=== PATIENT | female | born 1960 | race Caucasian/White ===

== ENCOUNTER 2017-04-19 14:20 | Inpatient (IN) | payer OTHER ==
[~2017-04-19] VITALS: Ht 154.9 cm; Wt 62.6 kg
--- NOTE | 2017-04-19 14:40 | NUR ---
PT TO ED "SENT BY OUR FRIEND DR ELLIOTT FOR IV VALCYCLOVIR" PT APPEARS WITH DIFFUSE RASH ALL OVER FACE AND BODY, REPORTING SHE SAW HER MD AND WAS DX'ED WITH CHICKEN POX, STARTED ON PO VALCYCLOVIR WITH NO IMPROVEMENT. REPORTING INTERMITTENT VOMITING, POOR PO INTAKE AND FEVER.
--- NOTE | 2017-04-19 15:30 | NUR ---
ASSUMED CARE OF PT, PT WITH LEFT SIDE FACE SHINGLES THAT BEGAN A FEW DAYS AGO. PT IN NAD.
[2017-04-19] MEDS ORDERED: VALACYCLOVIR1000 MG PO (16:17)
[2017-04-19] MEDS ORDERED: LEVOTHYROXINE112 MCG PO (16:18)
[2017-04-19] MEDS ORDERED: ALEVE220 M1 PO (16:18)
--- NOTE | 2017-04-19 16:27 | ED SKIN/ALLERGY COMPLAINT ---
History of Present Illness General Chief Complaint: General Adult Stated Complaint: RENZO PINK FOR IV AND BLOODWORK Source: patient Exam Limitations: no limitations Vital Signs & Intake/Output Vital Signs & Intake/Output Vital Signs Date Time Temp Pulse Resp B/P B/P Pulse O2 O2 Flow FiO2 Mean Ox Delivery Rate 04/19 1439 98.2 65 18 108/71 99 Room Air Allergies Coded Allergies: No Known Allergies (04/19/17) Reconcile Medications Levothyroxine Sodium 112 MCG TABLET 1 TAB PO DAILY THYROID (Reported) Naproxen Sodium (Aleve) 220 MG CAPSULE 2 CAP PO PRN PAIN (Reported) Valacyclovir HCl (Valacyclovir) 1,000 MG TABLET 1 TAB PO TID SHINGLES ( Reported) Triage Note: PT TO ED "SENT BY OUR FRIEND DR ELLIOTT FOR IV VALCYCLOVIR" PT APPEARS WITH DIFFUSE RASH ALL OVER FACE AND BODY, REPORTING SHE SAW HER MD AND WAS DX'ED WITH CHICKEN POX, STARTED ON PO VALCYCLOVIR WITH NO IMPROVEMENT. REPORTING INTERMITTENT VOMITING, POOR PO INTAKE AND FEVER. Triage Nurses Notes Reviewed? yes Onset: Gradual Duration: getting worse Timing: remote history Severity: moderate Severity Numbers: 5 Possible Factors: no cause identified HPI: Patient is a 56-year-old female with past medical history of hypothyroidism who presents to emergency room with a gradual onset of a 9 day history of herpes zoster. Patient initially thought that she had bug bites to left forehead which has progressively worsened in terms of patient complaining of erythematous skin blistering rash that has spread down her for head around her eyes and face the left side of her upper extremity and lower extremity anterior and posterior torso region. Patient was evaluated in the past week by her primary care doctor and today patient was evaluated by windsurfing instructor Patient has been on a one-day history of VALCYCLOVIR antiviral medication Patient complains of mild 3 out of 10 burning pain and mild itching to the skin rash Denies any fever chills blurred vision pain neck stiffness shortness of breath cough Patient denies any vaginal skin outbreak (JOSE ANGEL ANTHONY) Past History Travel History Traveled to [place] past 21 day No Medical History Any Pertinent Medical History? see below for history Neurological: NONE EENT: NONE Cardiovascular: NONE Respiratory: NONE Gastrointestinal: NONE Hepatic: NONE Renal: NONE Musculoskeletal: NONE Psychiatric: NONE Endocrine: HYPOTHYROID Blood Disorders: NONE Cancer(s): NONE Surgical History Surgical History: non-contributory Psychosocial History What is your primary language Slovenian Tobacco Use: Never used ETOH Use: denies use Illicit Drug Use: denies illicit drug use Family History Hx Contributory? No (JOSE ANGEL ANTHONY) Review of Systems Review of Systems Constitutional: Reports: no symptoms. EENTM: Denies: eye pain, eye drainage, eye tearing. Respiratory: Reports: no symptoms. Cardiovascular: Reports: no symptoms. GI: Reports: no symptoms. Genitourinary: Reports: no symptoms. Musculoskeletal: Reports: no symptoms. Skin: Reports: see HPI, rash. Neurological/Psychological: Reports: no symptoms. Hematologic/Endocrine: Reports: no symptoms. Immunologic/Allergic: Reports: no symptoms. All Other Systems: Reviewed and Negative (JOSE ANGEL ANTHONY) Physical Exam Physical Exam General Appearance: no apparent distress, alert, comfortable Eyes: Bilateral: normal appearance, PERRL, EOMI. Ears, Nose, Throat: hearing grossly normal Neck: normal inspection, supple Respiratory: normal breath sounds, chest non-tender Cardiovascular: regular rate/rhythm Gastrointestinal: soft, non-tender Extremities: no edema Neurologic/Psych: no motor/sensory deficits, awake, alert, oriented x 3, normal gait Diagram Body: 1) Noted unilateral left-sided erythematous scattered vesicular rash noted (JOSE ANGEL ANTHONY) Progress Differential Diagnosis: abscess/cellulitis, contact dermatitis, erythema multiforme, lyme disease, meningitis/sepsis, shingles, HERPES ZOSTER, CELLULITIS , MAXIMINO-ALBERT, IRITIS, KERATITIS HERPES OPTHALMICUS Plan of Care: Orders Procedure Date/time Status Regular Diet 04/20 B Active CBC WITHOUT DIFFERENTIAL 04/20 0600 Active BASIC ELECTROLYTES PLUS BUN&CR 04/20 0600 Active ED Holding Orders 04/19 B Active Pathway - chart 04/19 182 Active Pathway - chart 04/19 182 Active House Staff 04/19 182 Active Patient Data 04/19 1822 Active Intake & Output 04/19 1822 Active Code Status 04/19 1822 Active Patient Data 04/19 1800 Active Admit to inpatient 04/19 1750 Active Code Status 04/19 1750 Complete Add-on Test (ER Only) 04/19 1705 Active THYROID STIMULATING HORMONE 04/19 1700 Complete THYROXINE 04/19 1700 Complete FREE T4 04/19 1700 Complete COMPREHENSIVE METABOLIC PANEL 04/19 1642 Complete CBC WITHOUT DIFFERENTIAL 04/19 1642 Complete Lab Add-on Test 04/19 UNK Active VTE Mechanical Prophylaxis 04/19 UNK Active Current Medications Sig/Bienvenido Start time Last Medication Dose Stop Time Status Admin Levothyroxine Sodium 0.1 MG DAILY AC 04/20 0700 AC (Synthroid) Pregabalin 50 MG TID 04/19 2200 AC (Lyrica) Acyclovir 600 MG Q8H 04/19 214 UNVr (Zovirax) Dextrose/Water 100 ML (D5W) Ketorolac 30 MG Q8P PRN 04/19 214 UNVr Tromethamine (Toradol) Morphine Sulfate 1 MG Q4P PRN 04/19 2030 AC (Morphine) Sodium Chloride 1,000 ML Q13H 04/19 2030 r (Normal Saline 0.9%) 04/20 0929 Acetaminophen 650 MG Q6P PRN 04/19 1830 AC (Tylenol) Enoxaparin Sodium 40 MG DAILY 04/19 1821 AC (Lovenox) Acyclovir 315 MG ONCE ONE 04/19 1715 CAN (Zovirax) 04/19 1716 Acyclovir 315 MG ONCE 04/19 0000 NR (Zovirax) 04/20 2358 Sodium Chloride 250 ML (Normal Saline 0.9%) Laboratory Tests 04/19/17 1700: Anion Gap 15, Estimated GFR > 60, BUN/Creatinine Ratio 26.7 H, Glucose 107 H, Calcium 9.9, Total Bilirubin 0.8, AST 25, ALT 42, Alkaline Phosphatase 86, Total Protein 7.7, Albumin 4.7, Globulin 3.0, Albumin/Globulin Ratio 1.6, TSH 0.016 L , Free T4 1.66, Thyroxine (T4) 13.2 H, CBC w Diff NO MAN DIFF REQ, RBC 4.85, MCV 87.8, MCH 29.2, RDW 13.4, MPV 7.6, Gran % 63.5, Lymphocytes % 17.8 L, Monocytes % 18.4 H, Eosinophils % 0.2, Basophils % 0.1, Absolute Granulocytes 5.0, Absolute Lymphocytes 1.4, Absolute Monocytes 1.5 H, Absolute Eosinophils 0 , Absolute Basophils 0, PUBS MCHC 33.3 Patient on initial examination declines pain medications when offered however states she is nauseous I discussed patient with windsurfing instructor Dr. GEE in which he evaluated patient today and he states that there is no concerns of this time of dendritic lesions or keratitis however patient was prescribed ZIRGAN eyedrops Patient denies any history of immunocompromise state however on exam findings patient has significant mucocutaneous herpes simplex virus infection Patient will be admitted for IV antiviral medications in which patient will require infectious disease consultation and further evaluation of patient's significant herpes zoster infection. Discussed disposition plan with patient who agrees Patient's who also go to the pharmacy to brass pickler the prescription of the eyedrops in which [facility] does not have ZIRGAN NOR trifluridine which was strongly advised by the windsurfing instructor to begin this medication concomitantly with antiviral medication Patient will be administered this eyedrop medication when is picked up by the (JOSE ANGEL ANTHONY) Departure Departure Disposition: STILL A PATIENT Condition: Stable Clinical Impression Primary Impression: Herpes zoster dermatitis Secondary Impressions: Herpes zoster ophthalmicus of left eye Referrals: FRANCESCO GRAFF,RADHA Knox (PCP/Family) Departure Forms: Customer Survey General Discharge Information Admission Note Spoke With: ERROL GRAFF,ROSA Documentation of Exam: Documentation of any treatments & extenuating circumstances including Concerns Regarding Discharge (functional status, medication knowledge or non-compliance, living conditions, etc.) that warrant an admission rather than observation: [ Discussed patient with Dr. Cota who agrees with general medicine admission for concerns of herpes zoster and herpes ophthalmicus. Patient requires infectious disease consultation, ophthalmology consultation, IV antiviral medications and further evaluation of patient's significant concerning viral infection.] (JOSE ANGEL ANTHONY) PA/TRADE ANALYST Co-Sign Statement Statement: ED Attending supervision documentation- [X] I saw and evaluated the patient. I have also reviewed all the pertinent lab results and diagnostic results. I agree with the findings and the plan of care as documented in the PA's/TRADE ANALYST's documentation. [X] I have reviewed the ED Record and agree with the PA's/TRADE ANALYST's documentation. [] Additions or exceptions (if any) to the PAs/TRADE ANALYST's note and plan are summarized below: [] (LEON GRAFF,TODD Ann)
[2017-04-19 17:07] LABS: ABSOLUTE BASOPHIL COUNT 0 /CUMM (0.0-0.2); ABSOLUTE EOSINOPHIL COUNT 0 /CUMM (0.0-0.7); ABSOLUTE LYMPH COUNT 1.4 /CUMM (1.2-3.4); ABSOLUTE MONOCYTE COUNT 1.5 /CUMM (0.10-0.60); BASOPHIL % 0.1 % (0.0-2.0); EOSINOPHIL % 0.2 % (0-5); GRANULOCYTE % 63.5 % (42.2-75.2); HEMATOCRIT 42.6 % (37-47); MEAN CORPUSCULAR HGB 29.2 PG (27.0-31.0); MEAN CORPUSCULAR HGB CONC 33.3 G/DL (33.0-37.0); MEAN CORPUSCULAR VOLUME 87.8 FL (81.0-99.0); MEAN PLATELET VOLUME 7.6 FL (7.4-10.4); PLATELET COUNT 225 /CUMM (130-400); RBC DISTRIBUTION WIDTH 13.4 % (11.5-14.5); RED BLOOD CELL CT 4.85 /CUMM (4.20-5.40); WHITE BLOOD CELL COUNT 7.9 /CUMM (4.8-10.8)
--- NOTE | 2017-04-19 17:13 | NUR ---
PT EVALUATED BY [facility] M NUNEZ. IV #20G INSERTED ON LAC. LABS DRAWN AND SENT. MEDICATED WITH ZOFRAN IVP FOR NAUSEA. SENT PT'S FAMILY TO GET ZOVIRAX IV FROM OUTSIDE PHARMACY BY [facility] HERE DON'T HAVE IT.
--- NOTE | 2017-04-19 18:02 | History & Physical ---
CRISTY DUNLAP MD 04/19/17 1802: General Information and HPI History of Present Illness: Ms. Arizmendi is a 56-year-old female with past medical history of hypothyroidism who presents with history of left facial rash that is painful and has progressed over the course of 9 days. She was in [place] when she started developing these "bug bites" on her left forehead. She thought they were bug bites because there was a swarm of flies had been near her earlier that day. Over the course of 5 days, this slowly progressed. She went to see her PCP, who also thought it was bug bites. However she started feeling this electric type pain and the rash continued to progress. She also experienced significant vomiting without blood. 2 days later, a family friend, Dr. Santos, happened to be visiting and noticed that the rash resembled herpes zoster. He referred them to Dr. mejias, the remanufacturing technician. On her exam, she saw no concerns for dendritic lesions or keratitis however the patient was prescribed Zirgan eyedrops. She then was referred to the emergency department here at [facility]. Talking to her now, she does not complain of much pain. She is endorsing slightly blurry vision despite normal vision on Dr. mejias's exam. She does have headache, nausea, poor by mouth intake, eye pain with movement. She is also anxious about her condition. She denies chest pain, shortness of breath, diarrhea, constipation. Of note, she does not know if she ever had chickenpox. She did not have the shingles vaccine. Allergies/Medications Allergies: Coded Allergies: tramadol (Mild, NAUSEA/VOMITING 04/23/17) Home Med list Levothyroxine Sodium 112 MCG TABLET 1 TAB PO DAILY THYROID (Reported) Levothyroxine Sodium (Synthroid) 100 MCG TABLET 1 TAB PO DAILY AC Hypothyroid Naproxen Sodium (Aleve) 220 MG CAPSULE 2 CAP PO PRN PAIN (Reported) Valacyclovir HCl (Valacyclovir) 1,000 MG TABLET 1 TAB PO TID SHINGLES Past History Travel History Traveled to [place] past 21 day No Medical History Neurological: NONE EENT: NONE Cardiovascular: NONE Respiratory: NONE Gastrointestinal: NONE Hepatic: NONE Renal: NONE Musculoskeletal: NONE Psychiatric: NONE Endocrine: HYPOTHYROID Blood Disorders: NONE Cancer(s): NONE Surgical History Surgical History: non-contributory Past Family/Social History Psychosocial History ETOH Use: denies use Illicit Drug Use: denies illicit drug use Review of Systems Review of Systems Constitutional: Reports: see HPI. EENTM: Reports: see HPI. Cardiovascular: Reports: no symptoms. Respiratory: Reports: no symptoms. GI: Reports: see HPI. Genitourinary: Reports: no symptoms. Musculoskeletal: Reports: no symptoms. Skin: Reports: see HPI. Neurological/Psychological: Reports: no symptoms. Hematologic/Endocrine: Reports: no symptoms. Immunologic/Allergic: Reports: no symptoms. All Other Systems: Reviewed and Negative Exam & Diagnostic Data Last 24 Hrs of Vital Signs/I&O Vital Signs Date Time Temp Pulse Resp B/P B/P Pulse O2 O2 Flow FiO2 Mean Ox Delivery Rate 04/19 1439 98.2 65 18 108/71 99 Room Air Intake & Output 04/19 1600 04/19 0800 04/19 0000 Intake Total Output Total Balance Patient 139 lb Weight Weight Reported by Patient Measurement Method Physical Exam General Appearance Alert, Oriented X3, Cooperative, No Acute Distress Skin dermatomal and vesicular rash mostly in left V1 erythematous papules and some crusting. This includes the left eye, front third of the top of the head. .there are also some papules diffusely spread along her head and neck and abdomen. Cardiovascular Regular Rate, Normal S1, Normal S2 Lungs Clear to Auscultation Abdomen Normal Bowel Sounds, Soft, No Tenderness, No Masses Extremities No Edema Last 24 Hrs of Labs/Jarrett: Laboratory Tests 04/19/17 1700: Anion Gap 15, Estimated GFR > 60, BUN/Creatinine Ratio 26.7 H, Glucose 107 H, Calcium 9.9, Total Bilirubin 0.8, AST 25, ALT 42, Alkaline Phosphatase 86, Total Protein 7.7, Albumin 4.7, Globulin 3.0, Albumin/Globulin Ratio 1.6, TSH 0.016 L , Thyroxine (T4) 13.2 H, CBC w Diff NO MAN DIFF REQ, RBC 4.85, MCV 87.8, MCH 29.2, RDW 13.4, MPV 7.6, Gran % 63.5, Lymphocytes % 17.8 L, Monocytes % 18.4 H , Eosinophils % 0.2, Basophils % 0.1, Absolute Granulocytes 5.0, Absolute Lymphocytes 1.4, Absolute Monocytes 1.5 H, Absolute Eosinophils 0, Absolute Basophils 0, PUBS MCHC 33.3 Assessment/Plan Assessment: Ms. Arizmendi is a 56-year-old female with past medical history of hypothyroidism who presents with history of left facial rash that is painful and has progressed over the course of 9 days. On admission, her vital signs were temperature 98.2, heart rate 65, RR 18, BP 108/71, satting 99% on room air. Labs were notable for a BUN of 24, glucose 107 , creatinine 0.9, TSH 6.016, thyroxine T4 13.2. There is no leukocytosis. She will be admitted to general medicine and treated for the following problems: 1. Dermatomal rash, likely herpes zoster 2. Diffuse rash 3. Hypothyroidism # Dermatomal rash, herpes zoster: Exam greatly supports herpes zoster rash as is it is dermatomal and vesicular. History of electric type pain also supports nerve type pain seen in herpes zoster. She is immunocompetent host. There is concern for ophthalmic involvement. She was evaluated by an remanufacturing technician and there is no concern at this time for inflammation in the eye. We will follow this closely. -PO valacyclovir -IV hydration -Zirgan eyedrops - confirm that these are the correct drops as usually valacyclovir or acyclovir as used for herpes zoster. -Consult ophthalmology -Anti-emetics as tolerated -Pain control as tolerated. consider gabapentin for neuropathic pain #Diffuse rash: Though uncommon, there is potential for her to have both herpes zoster and chickenpox. Because some of this rash is not in the dermatomal region as expected this is on the differential. -Continue to monitor #Hypothyroidism: She is actually hyperthyroid right now with thyroxine elevated. His is in context of her being sick. -Add T3 -Consider consulting endocrinology in the morning DVT prophylaxis with Lovenox Full code As Ranked By This Provider Problem List: 1. Herpes zoster dermatitis 2. Hypothyroid Core Measures/Miscellaneous Acute Coronary Syndrome ACS Diagnosis: No Cerebrovascular Accident CVA/TIA Diagnosis: No Congestive Heart Failure CHF Diagnosis: No VTE (View Protocol) VTE Risk Factors: Age > 40 [facility] d/t: No contraindications No VTE Pharm Prophylaxis d/t: No contraindications VTE Diagnosis: No VTE Type: NONE VTE Confirmed by (Test): NONE Sepsis (View Protocol) Severe Sepsis Present: No Septic Shock Septic Shock Present: No Miscellaneous Documentation Attending Case Discussed With: ERROL GRAFF,RSOA Primary Care Physician: RADHA GAMEZ MD Patient sees these Specialists None Level of Patient Care: General Medicine EVER GIBSON 04/19/171922: Resident Review Statement Resident Statement: examined this patient, discussed with logistics intern, agreed with logistics intern, discussed with family, reviewed EMR data (avail), discussed with nursing , reviewed images Other Findings: Mrs Arizmendi is a 56-year-old lady with a PMH of hypothyroidism who presents with complaints of a rash that started a few days ago. She and her report traveling to [place] during which she thought some bugs may have come in contact with her face. Over the past 5 days she noted what she describes as bumps on her left forehead and subsequent swelling of the gland around her left ear. Simultaneously she endorses pain around the left face she describes as electric shocks subsided the past 2 days. The rash appears to spread around her left eye, upper face and scattered spots on her abdomen, back and legs. She followed up with her PCP who referred her to see an remanufacturing technician Dr. Mejias earlier today. Slit lamp was performed which did show evidence of dendrites, she was started on oral valacyclovir and referred to the emergency room. ROS: Patient endorses intermittent episodes of chills, night sweats, slight blurred vision out of her left eye, aching sensation behind both eyes with movement, a few episodes of nonbloody vomiting. She denies any dizziness, confusion, difficulty swallowing, chest pain, palpitations, shortness of breath abdominal pain, changes in urinary/bladder habit. VS on admission: BP 108/71, HR 65, RR 18, SPO2 99% on RA, T 98.2 Physical exam findings: Patient has a vesicular rash that is localized around the V1 and partially around the V2 region of the left face tracking over the temporal region. Injected sclera present bilaterally. Scattered vesicular lesions on her abdomen and back. RRR, normal S1/S2. Lungs CTA BL. Normal bowel sounds. Pertinent labs on admission: WBC 7.9, H&H 14.2/42.6, platelet's 225K, sodium 141 , potassium 4.5, chloride 100, bicarbonate 27, BUN/CR 24/0.9, glucose 107 TSH 0.016L, T4 13.2 Problem list: 1. Primary infection (Varicella /chicken pox) vs reactivation (herpes zoster, shingles) 2. Trigeminal herpes zoster 3. Herpes ophthalmicus 4. Hypothyroidism with abnormal TFTs Plan: * Admit to general medicine for management of what appears to be a primary infection (varicella, chicken pox) the V1 and V2 region * Acyclovir dosage guidelines recommend 800 mg PO 5 times a day for 7-10 days in immunocompetent patients for both shigles and herpes opthalmicus. Alternatively 10mg/kg Q8 for 7 days * Will start her on 600mg Q8 along with gentle hydration with NS @ 75cc/hr as this medication can be associated with crystaline nephropathy * Role of corticosteroids is controversial but will discuss with both ID and opthalmology in the AM * Patient was seen by Dr. 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 His recommendation were to initiate Zirgan (opthalmic ganciclovir) . Will confirm with Dr Mejias if there was evidence of corneal ulceration during slight lamp exam. Patients will bring the medication from their pharmacy in the AM * Will monitor closely for evidence of complications associated with this: encephalitis that woould warrant CT/MRI brain and continued IV acyclovir * Monitor for Chente Karimi syndrome - pain, vesicles in ear canal + facial palsy + altered taste * Will discuss with ID on role of vaccination of / close contacts within the 3-5 day period * Pain management with NSAIDs, lyrica for neuropathy * Low TSH, high T4. T3 pending. Possibility of iatrogenic-induced hypothyroidism. Will obtain endocrinology consult in the a.m. * Regular diet * DVT prophylaxis: Lovenox 40 mg subcutaneous daily * Full code CODY GRAFF, [facility] 04/19/172033: Attending MD Review Statement Attending Statement Attending MD Statement: examined this patient, discuss w/resident/PA/AIRLINE RADIO OPERATOR, agreed w/resident/PA/AIRLINE RADIO OPERATOR, discussed with family Attending Assessment/Plan: 56 yo F with h/o hypothyroidism, is here for management of disseminated cutaneous zoster with concerns of eye involvement. Patient first noticed headache, 'electric shock like' sensation to her face and head about 8-9 days ago. She saw her PCP (Dr. Gamez) last week, was noted to have left cervical lymphadenopathy and thought she might have been bitten by a bug. Over the past 24-48 hours, she noticed red papules that evolved into vesicular lesions on the left half of the face involving the left eyelid, subsequently now noted to have erythematous papules on the chest, abdomen, bilateral thigh and lower back. These lesions do cross the midline. She was seen by Dr. Santos (family friend) who asked her to start taking Valcyclovir. Today she was seen by Dr. Mejias (Refrigeration Operator) who did a slip lamp exam with no evidence of dendritic lesions or keratitis. But she is at risk of developing zoster ophthalmicus. No history s/o immunocompromised state. She does not recollect having chicken pox and has not received the zoster vaccine. Patient reports fever of 101, chills, associated with nausea, vomiting and poor appetite for the past 2 days. C/o blurred vision in the left eye, though reports that her visual acuity was perfect at the doctor's office. VSS. Exam: extensive grouped vesicular lesions to the left half of face mostly V1 and V2 distribution involving left eyelid, a few extending into the right lower half, erythematous papules noted to the scalp, lower chest/ abdomen, bilateral thigh and lower back. These cross the midline. Sensation intact. EOMI, no pain with ROM. Labs: no leukocytosis, BUN 24, TSH 0.016 (low), Total T4 13.2 (high), Free T4 normal. 1. Disseminated cutaneous herpes zoster with concerns for zoster ophthalmicus. GM admit, contact and droplet precautions, IV acyclovir 10 mg/kgTID, gentle hydration, anti-emetics, topical ophthalmic Zirgan (Ganciclovir) or Trifluridine as per Dr. Mejias's recommendations. Unfortunately our pharmacy does not carry either of these medications, hence patient's will bring in the medication from outpatient pharmacy. ID consult in AM. Consider checking HIV to assess immunocompromised state. 2. Treat acute neuritis with NSAIDs, Tramadol and morphine for severe pain. Initiate pregabalin 50 TID. 3. Hypothyroidism on synthroid (112 mcg), now with low TSH. I have reduced her synthroid dose to 100 mcg, she will need repeat TFTs in 4-6 weeks as an outpatient and follow up with PCP. DVT ppx Lovenox. Full code.
--- NOTE | 2017-04-19 18:21 | NUR ---
ZOFRAN EFFECTIVE, PT REPORTS FEELING BETTER WITH NAUSEA.
--- NOTE | 2017-04-19 18:23 | NUR ---
HOUSE STAFF IN ROOM EVALUATING THE PT.
--- NOTE | 2017-04-19 18:42 | NUR ---
MORPHINE IVP ADMINISTERED ORDERED FOR PAIN 5/10.
--- NOTE | 2017-04-19 19:00 | NUR ---
ASSUMED CARE OF PT. PT HERE WITH C/O LEFT SIDED FACE SHINGLES. PT IN NAD, WILL CONTINUE TO MONITOR.
--- NOTE | 2017-04-19 20:00 | NUR ---
PT EVAL BY DR ROSS, PER DR ROSS PT TO BE ON CONTACT AND DROPLET/AIRBORN PRECAUTIONS. PT UPDATED ON PLAN OF CARE.
--- NOTE | 2017-04-19 20:29 | Admission Certification ---
Admission Certification Certification Statement - As attending physician, I certify that at the time of - admission, based on clinical presentation, severity of - symptoms, need for further diagnostic testing and - therapeutic interventions, and risk of adverse outcomes - without in-hospital treatment, in my clinical assessment, - this patient requires an acute hospital stay for a minimum - of two nights or longer. I have also considered psychsocial - factors such as support system, advanced age, financial - issues, cognitive issues, and failed out-patient treatments, - past re-admission history, safety of patient, and lack of - compliance as applicable. Specific rationale supporting this admission is: Disseminated cutaneous herpes zoster with concern for zoster ophthalmicus.
--- NOTE | 2017-04-20 00:01 | NUR ---
RESTING COMF IN [facility] BED, WILL DISCUSS WITH PHARMACY ZOVIRAX IV.
--- NOTE | 2017-04-20 04:40 | NUR ---
MOVED TO RM 10 PLACED ON HOSPITAL BED, SLIPPER SOCKS PLACED ON PT DENIES ANY PAIN
--- NOTE | 2017-04-20 07:32 | NUR ---
LABS DRAWN, SENT TO LAB.
--- NOTE | 2017-04-20 07:40 | NUR ---
MEDICATED WITH SYNTHROID (SEE MAR)
[2017-04-20 08:00] LABS: ABSOLUTE BASOPHIL COUNT 0 /CUMM (0.0-0.2); ABSOLUTE EOSINOPHIL COUNT 0 /CUMM (0.0-0.7); ABSOLUTE GRANULOCYTE CT 3.6 /CUMM (1.4-6.5); ABSOLUTE LYMPH COUNT 2.1 /CUMM (1.2-3.4); ABSOLUTE MONOCYTE COUNT 1.3 /CUMM (0.10-0.60); BASOPHIL % 0.4 % (0.0-2.0); EOSINOPHIL % 0.3 % (0-5); GRANULOCYTE % 50.8 % (42.2-75.2); HEMATOCRIT 39.7 % (37-47); MEAN CORPUSCULAR HGB 29.2 PG (27.0-31.0); MEAN CORPUSCULAR HGB CONC 33.1 G/DL (33.0-37.0); MEAN CORPUSCULAR VOLUME 88.1 FL (81.0-99.0); MEAN PLATELET VOLUME 7.9 FL (7.4-10.4); PLATELET COUNT 193 /CUMM (130-400); RBC DISTRIBUTION WIDTH 13.5 % (11.5-14.5); WHITE BLOOD CELL COUNT 7.1 /CUMM (4.8-10.8)
--- NOTE | 2017-04-20 08:45 | PN- Housestaff ---
See Addendum Subjective Follow-up For: Herpes zoster dermatitis Subjective: She presented last night. This morning, she is feeling a little better. She is still anxious being in the hsopital but she thinks her appetite has somewhat improved. No issues overnight. Her eye pain is 5/10, which is well controlled for her. No chest pain or SOB. Review of Systems Constitutional: Reports: no symptoms. EENTM: Reports: see HPI. Cardiovascular: Reports: no symptoms. Respiratory: Reports: no symptoms. Gastrointestinal: Reports: see HPI. Genitourinary: Reports: no symptoms. Musculoskeletal: Reports: no symptoms. Skin: Reports: no symptoms. Neurological/Psychological: Reports: no symptoms. Hematologic/Endocrine: Reports: no symptoms. Immunologic/Allergic: Reports: no symptoms. Objective Last 24 Hrs of Vital Signs/I&O Vital Signs Date Time Temp Pulse Resp B/P B/P Pulse O2 O2 Flow FiO2 Mean Ox Delivery Rate 04/20 0813 98.6 71 18 109/58 95 Room Air 04/19 2259 18 118/66 99 Room Air 04/19 2100 70 20 124/74 100 Room Air 04/19 1800 71 20 116/72 100 Room Air 04/19 1645 98.0 66 20 112/68 99 Room Air 04/19 1439 98.2 65 18 108/71 99 Room Air Intake & Output 04/20 1600 04/20 0800 04/20 0000 Intake Total 5 Output Total Balance 5 Intake, IV 5 Physical Exam General Appearance: Alert, Oriented X3, Cooperative, No Acute Distress HEENT: Rash has improved from yesterday. Less red, less swelling. Still in V1 distribution, vesicular. Diffuse rash on trunk is also improving. Cardiovascular: Regular Rate, Normal S1, Normal S2 Lungs: Clear to Auscultation Abdomen: Normal Bowel Sounds, Soft, No Tenderness, No Hepatospenomegaly, No Masses Neurological: Normal Speech, Strength at 5/5 X4 Ext Extremities: No Edema Current Medications: Current Medications Sig/Bienvenido Start time Last Medication Dose Route Stop Time Status Admin Acetaminophen 650 MG Q6P PRN 04/19 1830 AC PO Acyclovir 600 MG Q8H 04/19 2145 AC 04/20 Dextrose/Water 100 ML IV 0538 Acyclovir 315 MG ONCE ONE 04/19 1715 CAN IV 04/19 1716 Acyclovir 315 MG ONCE 04/19 0000 DC Sodium Chloride 250 ML IV 04/20 2358 Enoxaparin Sodium 40 MG DAILY 04/19 182 AC SC Gabapentin 100 MG Q8 PRN 04/19 2015 DC PO Ketorolac 30 MG Q8P PRN 04/19 2145 DC Tromethamine IV Levothyroxine Sodium 0.112 MG DAILY AC 04/20 0700 DC PO Levothyroxine Sodium 0.1 MG DAILY AC 04/20 0700 AC 04/20 PO 0740 Morphine Sulfate 1 MG Q4P PRN 04/19 2030 AC IV Morphine Sulfate 0 .STK-MED ONE 04/19 1844 DC .ROUTE Morphine Sulfate 2 MG Q4P PRN 04/19 1830 DC 04/19 IV 1843 Ondansetron HCl 0 .STK-MED ONE 04/19 170 DC .ROUTE Ondansetron HCl 4 MG ONCE ONE 04/19 1700 DC 04/19 IV 04/19 1701 1708 Oxycodone/ 1 TAB Q6P PRN 04/19 1830 DC Acetaminophen PO Pregabalin 50 MG TID 04/19 2200 AC 04/19 PO 2240 Sodium Chloride 1,000 ML Q13H 04/19 2030 AC 04/19 IV 04/20 0929 2240 Tramadol HCl 50 MG Q6P PRN 04/19 2315 AC PO Last 24 Hrs of Lab/Jarrett Results Last 24 Hrs of Labs/Mics: Laboratory Tests 04/20/17 0730: Anion Gap 10, Estimated GFR > 60, BUN/Creatinine Ratio 25.0, Total Bilirubin 0.7 , Direct Bilirubin 0.3, AST 43 H, ALT 42, Alkaline Phosphatase 78, Total Protein 6.5, Albumin 3.8, CBC w Diff NO MAN DIFF REQ, RBC 4.50, MCV 88.1, MCH 29.2, RDW 13.5, MPV 7.9, Gran % 50.8, Lymphocytes % 29.7, Monocytes % 18.8 H, Eosinophils % 0.3, Basophils % 0.4, Absolute Granulocytes 3.6, Absolute Lymphocytes 2.1, Absolute Monocytes 1.3 H, Absolute Eosinophils 0, Absolute Basophils 0, PUBS MCHC 33.1 04/19/17 1700: Anion Gap 15, Estimated GFR > 60, BUN/Creatinine Ratio 26.7 H, Glucose 107 H, Calcium 9.9, Total Bilirubin 0.8, AST 25, ALT 42, Alkaline Phosphatase 86, Total Protein 7.7, Albumin 4.7, Globulin 3.0, Albumin/Globulin Ratio 1.6, TSH 0.016 L , Free T4 1.66, Thyroxine (T4) 13.2 H, Total T3 0.72 L, CBC w Diff NO MAN DIFF REQ, RBC 4.85, MCV 87.8, MCH 29.2, RDW 13.4, MPV 7.6, Gran % 63.5, Lymphocytes % 17.8 L, Monocytes % 18.4 H, Eosinophils % 0.2, Basophils % 0.1, Absolute Granulocytes 5.0, Absolute Lymphocytes 1.4, Absolute Monocytes 1.5 H, Absolute Eosinophils 0, Absolute Basophils 0, PUBS MCHC 33.3 Assessment/Plan Assessment: Ms. Arizmendi is a 56-year-old female with past medical history of hypothyroidism who presents with history of left facial rash that is painful and has progressed over the course of 9 days. # Dermatomal rash, likely herpes zoster: Exam greatly supports herpes zoster rash as is it is dermatomal and vesicular. History of electric type pain also supports nerve type pain seen in herpes zoster. She is immunocompetent host. She will likely need follow-up with the radiation control health physicist after discharge, which can potentially be today. -PO acyclovir -IV hydration -Zirgan eyedrops - confirm that these are the correct drops as usually valacyclovir or acyclovir as used for herpes zoster. -Consult ophthalmology we will talk to Dr. Rausch today -Pregabalin -Lyrica -Acetaminophen -Morphine when necessary pain #Diffuse rash: Though uncommon, there is potential for her to have both herpes zoster and chickenpox. Because some of this rash is not in the dermatomal region as expected this is on the differential. -Continue to monitor #Hypothyroidism: TSH 0.016, T4 13.2, free T4 1.66, total T3 0.72. -Consider consulting endocrinology. May need adjustment of her levothyroxine -Continue levothyroxine DVT prophylaxis with Lovenox Full code Problem List: 1. Herpes zoster dermatitis 2. Hypothyroid Pain Ratin Pain Location: eye Pain Goal: Remain pain free Pain Plan: see a/p Tomorrow's Labs & Rationales: none
--- NOTE | 2017-04-20 10:00 | NUR ---
MEDICATED ORDERED (SEE MAR)
--- NOTE | 2017-04-20 10:52 | Discharge Summary ---
Visit Information Visit Dates Admission Date: 04/19/17 Discharge Date: 04/24/17 Hospital Course Course Attending Physician: ROSA NORTON MD Primary Care Physician: RADHA MAYA MD Hospital Course: Ms. Arizmendi is a 56-year-old female with past medical history of hypothyroidism who presented with history of left facial rash that is painful and had progressed over the course of 9 days. On admission, her vital signs were temperature 98.2, heart rate 65, RR 18, BP 108/71, satting 99% on room air. Labs were notable for a BUN of 24, glucose 107 , creatinine 0.9, TSH 6.016, thyroxine T4 13.2. There was no leukocytosis. She will be admitted to general medicine and treated for the following problems: 1. Disseminated herpes zoster 2. Hypothyroidism #herpes zoster dermatitis with secondary dissemination: Her history and exam on presentation greatly supported herpes zoster rash as it was dermatomal and vesicular. Infectious disease was consulted. She was treated with intravenous acyclovir and her pain was treated appropriately. She did not develop significant blurry vision, pain with combination, increasing pain in the eye. Her rash is now improving and she is ready for discharge. She should follow-up with ophthalmology on Monday and her PCP this week. She should continue the valacyclovir as directed. #Hypothyroidism: TSH 0.016, T4 13.2, free T4 1.66, total T3 0.72 at presentation. We adjusted her levothyroxine dose and she should continue this going forward. She should also follow up with her PCP for further care. #Transaminitis: She presented with increases in her AST and ALT. This was likely a side effect of the acyclovir as it improved spontaneously. She requires no further care for this. Allergies: Coded Allergies: tramadol (Mild, NAUSEA/VOMITING 04/23/17) Disposition Summary Disposition Principal Diagnosis: Disseminated herpes zoster Additional Diagnosis: Hypothyroidism, chickenpox Discharge Disposition: home or self care Discharge Instructions General Discharge Information Code Status: Full Code Patient's Diet: Regular Patient's Activity: as tolerated Follow-Up Instructions/Appts: Please follow-up with your PCP in 1 week. Please follow-up with the machine assembler supervisor at your appointment next week. Please take all medications as directed. Medications at Discharge Discharge Medications: Stop taking the following medications: Levothyroxine Sodium (Levothyroxine Sodium) 112 MCG TABLET ORAL DAILY Qty = 90 Continue taking these medications: Naproxen Sodium (Aleve) 220 MG CAPSULE 2 Capsule ORAL as needed for PAIN Comments: NOT GIVEN IN HOSPITAL Valacyclovir HCl (Valacyclovir) 1,000 MG TABLET 1 Tablet ORAL THREE TIMES DAILY Qty = 15 Instructions: Take this medication for 5 more days and stop on 04/29/17 Comments: Last Taken: 04/24/17 Time: 5:30 AM (IV DOSE GIVEN) This prescription has been renewed Start taking the following new medications: Levothyroxine Sodium (Synthroid) 100 MCG TABLET 1 Tablet ORAL DAILY BEFORE BREAKFAST Qty = 30 No Refills Instructions: . Comments: Last Taken: 04/24/17 Time: 5:30 AM Copies To: MARLEN GRAFF,JOSE ANGEL Lindsay; FRANCESCO GRAFF,RADHA Knox
--- NOTE | 2017-04-20 14:36 | NUR ---
ZOVIRAX INFUSING (SEE MAR)
[2017-04-20] MEDS ORDERED: SYNTHROID100 MCG PO (16:11)
[2017-04-20] MEDS ORDERED: VALACYCLOVIR1000 MG PO (16:11)
--- NOTE | 2017-04-20 17:21 | NUR ---
PT MEDICATED WITH HER OWN EYE DROPS. PHARM AND HOUSE STAFF AWARE
--- NOTE | 2017-04-20 17:27 | Cons- Infect Disease ---
General Information and HPI Consulting Request Date of Consult: 04/20/17 Requested By: ERROL GRAFF,ROSA Reason for Consult: Disseminated zoster Source of Information: patient, family, primary team Exam Limitations: no limitations History of Present Illness: 56-year-old female with past medical history of hypothyroidism who presents with history of left facial rash that is painful and has progressed over the past few days. She was in [place] when she started developing these "bug bites" on her left forehead. Over the course of 5 days, this slowly progressed. She describes "electric type pain" and the rash continued to progress. A family friend, Dr. Santos, happened to be visiting and noticed that the rash resembled herpes zoster. Sh was referred to see an kiln furniture caster (exam negative dendritic lesions or keratitis). On admission she c/o headache, nausea, blurry vision and eye pain with movement. Noted vesicular rash (very itchy) now on her abdomen and back. She denies chest pain, shortness of breath, diarrhea, constipation. Low grade fever previous day. Feels fatigued. Allergies/Medications Allergies: Coded Allergies: No Known Allergies (04/19/17) Home Med List: Levothyroxine Sodium 112 MCG TABLET 1 TAB PO DAILY THYROID (Reported) Levothyroxine Sodium (Synthroid) 100 MCG TABLET 1 TAB PO DAILY AC Hypothyroid Naproxen Sodium (Aleve) 220 MG CAPSULE 2 CAP PO PRN PAIN (Reported) Valacyclovir HCl (Valacyclovir) 1,000 MG TABLET 1 TAB PO TID SHINGLES Current Medications: Current Medications Sig/Bienvenido Start time Last Medication Dose Route Stop Time Status Admin Acetaminophen 650 MG Q6P PRN 04/19 1830 AC PO Acyclovir 600 MG Q8H 04/19 2145 AC 04/20 Dextrose/Water 100 ML IV 1436 Acyclovir 315 MG ONCE ONE 04/19 1715 CAN IV 04/19 1716 Acyclovir 315 MG ONCE 04/19 0000 DC Sodium Chloride 250 ML IV 04/20 2358 Enoxaparin Sodium 40 MG DAILY 04/19 1821 AC SC Gabapentin 100 MG Q8 PRN 04/19 2015 DC PO Ketorolac 30 MG Q8P PRN 04/19 2145 DC Tromethamine IV Levothyroxine Sodium 0.112 MG DAILY AC 04/20 07 DC PO Levothyroxine Sodium 0.1 MG DAILY AC 04/20 0700 AC 04/20 PO 0740 Morphine Sulfate 0 .STK-MED ONE 04/20 1003 DC .ROUTE Morphine Sulfate 1 MG Q4P PRN 04/19 2030 AC 04/20 IV 0959 Morphine Sulfate 0 .STK-MED ONE 04/19 1844 DC .ROUTE Morphine Sulfate 2 MG Q4P PRN 04/19 1830 DC 04/19 IV 1843 Ondansetron HCl 0 .STK-MED ONE 04/19 1701 DC .ROUTE Oxycodone/ 1 TAB Q6P PRN 04/19 1830 DC Acetaminophen PO Patient Own 1 UNIT SEE ADMIN CRITERIA 04/20 1630 AC Medication OPH Pregabalin 0 .STK-MED ONE 04/20 1629 DC PO Pregabalin 0 .STK-MED ONE 04/20 1008 DC PO Pregabalin 50 MG TID 04/19 2200 AC 04/20 PO 1624 Sodium Chloride 1,000 ML Q13H 04/19 2030 DC 04/19 IV 04/20 0929 2240 Tramadol HCl 50 MG Q6P PRN 04/19 2315 AC PO Past History Travel History Traveled to [place] past 21 day No Medical History Neurological: NONE EENT: NONE Cardiovascular: NONE Respiratory: NONE Gastrointestinal: NONE Hepatic: NONE Renal: NONE Musculoskeletal: NONE Psychiatric: NONE Endocrine: HYPOTHYROID Blood Disorders: NONE Cancer(s): NONE Other Medical Hx: no h/o chickenpox as child Surgical History Surgical History: non-contributory Psychosocial History Where Do You Live? Home Smoking Status: Never Smoked ETOH Use: denies use Illicit Drug Use: denies illicit drug use Review of Systems Comments 12 points reviewed as noted, otherwise negative. Exam & Diagnostic Data Last 24 Hrs of Vital Signs/I&O Vital Signs Date Time Temp Pulse Resp B/P B/P Pulse O2 O2 Flow FiO2 Mean Ox Delivery Rate 04/20 1226 97.3 73 18 125/57 98 Room Air 04/20 1020 100.4 74 18 102/54 96 Room Air 04/20 0813 98.6 71 18 109/58 95 Room Air 04/19 2259 18 118/66 99 Room Air 04/19 2100 70 20 124/74 100 Room Air 04/19 1800 71 20 116/72 100 Room Air Intake & Output 04/20 1600 04/20 0800 04/20 0000 Intake Total 5 Output Total Balance 5 Intake, IV 5 Patient 139 lb Weight Weight Reported by Patient Measurement Method Physical Exam Other Physical Findings: General Appearance Alert, No Acute Distress Skin dermatomal vesicular rash on erythematous base involving L ophthalmic branch of trigeminal nerve teritory. New vesicles spreading to the neck, back and lower abdomen. HEENT; AT/NC, no thrush, L eye chemosis, tearing and periorbital edema Cardiovascular Regular Rate, Normal S1, Normal S2, no m/r/g Lungs Clear to Auscultation Abdomen Normal Bowel Sounds, Soft, No Tenderness Extremities No pedal Edema Neuro: A&O x3, CN grossly nl. Last 24 Hours of Lab Results: Laboratory Tests 04/20 0730 Chemistry Sodium (137 - 145 mmol/L) 138 Potassium (3.5 - 5.1 mmol/L) 4.2 Chloride (98 - 107 mmol/L) 102 Carbon Dioxide (22 - 30 mmol/L) 27 Anion Gap (5 - 16) 10 BUN (7 - 17 mg/dL) 20 H Creatinine (0.5 - 1.0 mg/dL) 0.8 Estimated GFR (>60 ml/min) > 60 BUN/Creatinine Ratio (7 - 25 %) 25.0 Total Bilirubin (0.2 - 1.3 mg/dL) 0.7 Direct Bilirubin (< 0.4 mg/dL) 0.3 AST (14 - 36 U/L) 43 H ALT (9 - 52 U/L) 42 Alkaline Phosphatase (<127 U/L) 78 Total Protein (6.3 - 8.2 g/dL) 6.5 Albumin (3.5 - 5.0 g/dL) 3.8 Hematology CBC w Diff NO MAN DIFF REQ WBC (4.8 - 10.8 /CUMM) 7.1 RBC (4.20 - 5.40 /CUMM) 4.50 Hgb (12.0 - 16.0 G/DL) 13.1 Hct (37 - 47 %) 39.7 MCV (81.0 - 99.0 FL) 88.1 MCH (27.0 - 31.0 PG) 29.2 RDW (11.5 - 14.5 %) 13.5 Plt Count (130 - 400 /CUMM) 193 MPV (7.4 - 10.4 FL) 7.9 Gran % (42.2 - 75.2 %) 50.8 Lymphocytes % (20.5 - 51.1 %) 29.7 Monocytes % (1.7 - 9.3 %) 18.8 H Eosinophils % (0 - 5 %) 0.3 Basophils % (0.0 - 2.0 %) 0.4 Absolute Granulocytes (1.4 - 6.5 /CUMM) 3.6 Absolute Lymphocytes (1.2 - 3.4 /CUMM) 2.1 Absolute Monocytes (0.10 - 0.60 /CUMM) 1.3 H Absolute Eosinophils (0.0 - 0.7 /CUMM) 0 Absolute Basophils (0.0 - 0.2 /CUMM) 0 PUBS MCHC (33.0 - 37.0 G/DL) 33.1 Last 24 Hours of Jarrett Results: n/a Diagnostic Data Recent Imaging Findings: n/a Assessment/Plan Assessment/Plan Impression: 56-year-old female with past medical history of hypothyroidism diagnosed as outpatient with herpes zoster opthtalmicus, complicated by disseminated zoster. Of note 2/3 patients can develop keratitis; if persistent eye discomfort f/u ophthalmology recommended. Low grade fever. Suggestion: 1. Acyclovir 10 mg/kg q 8 h D #2/. 2. Oral gabapentin for neuropathic pain. 3. Keep well hydrated. Monitor BMP. 4. Contact and airborne precautions. Consult Acknowledgment - Thank you for your consult request.
--- NOTE | 2017-04-20 17:52 | NUR ---
PT ASSIGNED TO 207-1
--- NOTE | 2017-04-20 18:36 | NUR ---
REPORT GIVEN TO CANDELARIA ARAGON
[2017-04-20 22:31] VITALS: BP 120/68
--- NOTE | 2017-04-20 23:13 | NUR ---
PT ARRIVED TO ROOM 207 AT ABOUT 1930 04/20/17. PT IS IN NEGATIVE PRESSURE ROOM. SHE IS A/O X3. PT HAS RASH TO LEFT SIDE OF FACE AND RED SPOTS TO TORSO (ABD AND BACK) VSS 118/68,76,99.0,97% ON RA, 16 RESP. NO C/O CP. PT ORRIENTED TO ROOM. NEW IV PLACED #24 TO RW.
[2017-04-21 06:00] VITALS: BP 120/70
--- NOTE | 2017-04-21 06:45 | PN- Student ---
Subjective Subjective: She has been having 5/10 achy pain in the back of her eyes. There is pain with moving her eyes. Other than this her appitite has improved and she is not having nausea. She has been eating and she slept well overnight. She did not need any morphine or acetaminophen overnight. Objective Objective: PE: Vitals: WNL Neuo: EOM are intact but the exam caused pain. There was slight pain with accomodation. Skin: Erythematous, pustular, weeping rash in the V1 dermatome. Diffuse pustules with an erythematous base on the abd. and the back. Results Results: Laboratory Tests 04/21/17 0630: Sodium Pending, Potassium Pending, Chloride Pending, Carbon Dioxide Pending, Anion Gap Pending, BUN Pending, Creatinine Pending, BUN/Creatinine Ratio Pending , Total Bilirubin Pending, Direct Bilirubin Pending, AST Pending, ALT Pending, Alkaline Phosphatase Pending, Total Protein Pending, Albumin Pending, CBC w Diff Pending, WBC Pending, RBC Pending, Hgb Pending, Hct Pending, MCV Pending, MCH Pending, RDW Pending, Plt Count Pending, MPV Pending, PUBS MCHC Pending 04/20/17 0730: Anion Gap 10, Estimated GFR > 60, BUN/Creatinine Ratio 25.0, Total Bilirubin 0.7 , Direct Bilirubin 0.3, AST 43 H, ALT 42, Alkaline Phosphatase 78, Total Protein 6.5, Albumin 3.8, CBC w Diff NO MAN DIFF REQ, RBC 4.50, MCV 88.1, MCH 29.2, RDW 13.5, MPV 7.9, Gran % 50.8, Lymphocytes % 29.7, Monocytes % 18.8 H, Eosinophils % 0.3, Basophils % 0.4, Absolute Granulocytes 3.6, Absolute Lymphocytes 2.1, Absolute Monocytes 1.3 H, Absolute Eosinophils 0, Absolute Basophils 0, PUBS MCHC 33.1 04/19/17 1700: Anion Gap 15, Estimated GFR > 60, BUN/Creatinine Ratio 26.7 H, Glucose 107 H, Calcium 9.9, Total Bilirubin 0.8, AST 25, ALT 42, Alkaline Phosphatase 86, Total Protein 7.7, Albumin 4.7, Globulin 3.0, Albumin/Globulin Ratio 1.6, TSH 0.016 L , Free T4 1.66, Thyroxine (T4) 13.2 H, Total T3 0.72 L, CBC w Diff NO MAN DIFF REQ, RBC 4.85, MCV 87.8, MCH 29.2, RDW 13.4, MPV 7.6, Gran % 63.5, Lymphocytes % 17.8 L, Monocytes % 18.4 H, Eosinophils % 0.2, Basophils % 0.1, Absolute Granulocytes 5.0, Absolute Lymphocytes 1.4, Absolute Monocytes 1.5 H, Absolute Eosinophils 0, Absolute Basophils 0, PUBS MCHC 33.3 Assessment/Plan Assessment: Ms. Arizmendi is a 56-year-old female with past medical history of hypothyroidism who presents with history of left facial rash that is painful and has progressed over the course of 9 days. The electric pain has improved but she still has an achy pain 5/10 at the back of her eyes. The rash on the back is less erythematous. She also has elevated transaminases AST: 76, ALT:97 today. Plan: 1) Dermatomal rash, likely herpes zoster: Exam greatly supports herpes zoster rash as is it is dermatomal and vesicular. History of electric type pain also supports nerve type pain seen in herpes zoster. She is immunocompetent host. She will likely need follow-up with the teacher of the deaf/hard of hearing after discharge, which can potentially be today. -Acyclovir 600mg/100mL q8H IV -IV hydration -Zirgan eyedrops - confirm that these are the correct drops as usually valacyclovir or acyclovir as used for herpes zoster. -Consult ophthalmology we will talk to Dr. Rausch today -Pregabalin -Lyrica -Acetaminophen -Morphine when necessary pain 1mg q4h PRN 2) Diffuse rash: Though uncommon, there is potential for her to have both herpes zoster and chickenpox or another viral infection such as molluscum contagiosum. The rash on the back appears to be diffuse pustules with erythematous base. -Continue to monitor 3) Transaminitis: AST: 76, ALT:97 May be acyclovir or due to herpes zoster related hepititis. It also may be due to autoimmune hepititis that is due to cross-reactivity between the antibodies to the zoster virus and the hepatocytes. 4) Hypothyroidism -Consider consulting endocrinology. May need adjustment of her levothyroxine -Continue levothyroxine 5) DVT prophylaxis with Lovenox 6) Full code
--- NOTE | 2017-04-21 07:23 | PN- Housestaff ---
See Addendum Subjective Follow-up For: Disseminated herpes zoster Subjective: No overnight events. She slept well and feels better today. Not much pain, but still a little in her eyes with movement. She is also noticing that the rash is weeping, which she wipes with a tissue. Her nausea has improved, she ate some lunch and dinner yesterday. The chicken pox rash is not very itchy. Otherwise, no complaints. Review of Systems Constitutional: Reports: no symptoms. EENTM: Reports: see HPI. Cardiovascular: Reports: no symptoms. Respiratory: Reports: no symptoms. Gastrointestinal: Reports: no symptoms. Genitourinary: Reports: no symptoms. Musculoskeletal: Reports: no symptoms. Skin: Reports: see HPI. Neurological/Psychological: Reports: no symptoms. Hematologic/Endocrine: Reports: no symptoms. Immunologic/Allergic: Reports: no symptoms. Objective Last 24 Hrs of Vital Signs/I&O Vital Signs Date Time Temp Pulse Resp B/P B/P Pulse O2 O2 Flow FiO2 Mean Ox Delivery Rate 04/21 0600 98.4 85 16 120/70 96 Room Air 04/20 2231 100.8 76 20 120/68 96 04/20 1830 98.9 77 14 108/58 99 Room Air 04/20 1226 97.3 73 18 125/57 98 Room Air 04/20 1020 100.4 74 18 102/54 96 Room Air 04/20 0813 98.6 71 18 109/58 95 Room Air Intake & Output 04/21 0800 04/21 0000 04/20 1600 Intake Total 630 510 Output Total Balance 630 510 Intake, IV 150 130 Intake, Oral 480 380 Number 1 Bowel Movements Patient 139 lb Weight Weight Reported by Patient Measurement Method Physical Exam General Appearance: Alert, Oriented X3, Cooperative, No Acute Distress Skin: Left V1 vesicular rash healing, some crusting and some still weeping. Chicken pox rash on trunk improving. Cardiovascular: Regular Rate, Normal S1, Normal S2 Lungs: Clear to Auscultation Abdomen: Normal Bowel Sounds, Soft, No Tenderness, No Masses Current Medications: Current Medications Sig/Bienvenido Start time Last Medication Dose Route Stop Time Status Admin Acetaminophen 650 MG Q6P PRN 04/19 1830 AC PO Acyclovir 600 MG Q8H 04/19 2145 AC 04/21 Dextrose/Water 100 ML IV 0621 Enoxaparin Sodium 40 MG DAILY 04/19 1821 AC SC Levothyroxine Sodium 0.1 MG DAILY AC 04/20 0700 AC 04/21 PO 0621 Morphine Sulfate 0 .STK-MED ONE 04/20 1003 DC .ROUTE Morphine Sulfate 1 MG Q4P PRN 04/19 2030 AC 04/20 IV 0959 Patient Own 1 UNIT SEE ADMIN CRITERIA 04/20 1630 AC 04/20 Medication OPH 2247 Pregabalin 0 .STK-MED ONE 04/20 1629 DC PO Pregabalin 0 .STK-MED ONE 04/20 1008 DC PO Pregabalin 50 MG TID 04/19 2200 AC 04/20 PO 2207 Sodium Chloride 1,000 ML Q13H 04/19 2030 DC 04/19 IV 04/20 0929 2240 Tramadol HCl 50 MG Q6P PRN 04/19 2315 AC PO Last 24 Hrs of Lab/Jarrett Results Last 24 Hrs of Labs/Mics: Laboratory Tests 04/20/17 0730: Anion Gap 10, Estimated GFR > 60, BUN/Creatinine Ratio 25.0, Total Bilirubin 0.7 , Direct Bilirubin 0.3, AST 43 H, ALT 42, Alkaline Phosphatase 78, Total Protein 6.5, Albumin 3.8, CBC w Diff NO MAN DIFF REQ, RBC 4.50, MCV 88.1, MCH 29.2, RDW 13.5, MPV 7.9, Gran % 50.8, Lymphocytes % 29.7, Monocytes % 18.8 H, Eosinophils % 0.3, Basophils % 0.4, Absolute Granulocytes 3.6, Absolute Lymphocytes 2.1, Absolute Monocytes 1.3 H, Absolute Eosinophils 0, Absolute Basophils 0, PUBS MCHC 33.1 Assessment/Plan Assessment: Ms. Arizmendi is a 56-year-old female with past medical history of hypothyroidism who presents with history of left facial rash that is painful and has progressed over the course of 9 days. # Dermatomal rash, likely herpes zoster: Her rash is improving however it is disseminated and ID is recommending another day of IV antivirals. She does not have much pain with accommodation and the eye pain with movement and is improving. -PO acyclovir -IV hydration -Zirgan eyedrops - confirm that these are the correct drops as usually valacyclovir or acyclovir as used for herpes zoster. -Outpatient follow-up with ophthalmology -Pregabalin -Acetaminophen -Morphine when necessary pain -Follow up with infectious disease recommendations for home medication #transaminitis: AST 76, ALT 97, increased from prior. Unclear etiology. Differential diagnosis includes side effect of acyclovir, autoimmune hepatitis induced by zoster/chickenpox versus zoster hepatitis. Acyclovir has the lowest hepatotoxicity of her options and we will continue this. -Daily LFTs #Diffuse rash: Though uncommon, there is potential for her to have both herpes zoster and chickenpox. Because some of this rash is not in the dermatomal region as expected this is on the differential. -Continue to monitor #Hypothyroidism: TSH 0.016, T4 13.2, free T4 1.66, total T3 0.72. -Consider consulting endocrinology. May need adjustment of her levothyroxine -Continue levothyroxine DVT prophylaxis with Lovenox Full code Problem List: 1. Herpes zoster dermatitis 2. Hypothyroid 3. Disseminated herpes zoster Pain Ratin Pain Location: eye Pain Goal: Remain pain free Pain Plan: see a/p Tomorrow's Labs & Rationales: cbc, lft, bep, inr
[2017-04-21 08:21] LABS: ABSOLUTE BASOPHIL COUNT 0 /CUMM (0.0-0.2); ABSOLUTE EOSINOPHIL COUNT 0 /CUMM (0.0-0.7); ABSOLUTE GRANULOCYTE CT 1.9 /CUMM (1.4-6.5); ABSOLUTE LYMPH COUNT 3.3 /CUMM (1.2-3.4); BASOPHIL % 0.7 % (0.0-2.0); EOSINOPHIL % 0.8 % (0-5); GRANULOCYTE % 30.1 % (42.2-75.2); HEMATOCRIT 38.4 % (37-47); MEAN CORPUSCULAR HGB 29.6 PG (27.0-31.0); MEAN CORPUSCULAR HGB CONC 33.7 G/DL (33.0-37.0); MEAN CORPUSCULAR VOLUME 87.9 FL (81.0-99.0); MEAN PLATELET VOLUME 8.3 FL (7.4-10.4); RBC DISTRIBUTION WIDTH 13.1 % (11.5-14.5); RED BLOOD CELL CT 4.37 /CUMM (4.20-5.40); WHITE BLOOD CELL COUNT 6.3 /CUMM (4.8-10.8)
[2017-04-21 09:13] LABS: PLATELET COUNT 200 /CUMM (130-400)
[2017-04-21 14:22] VITALS: BP 118/55
--- NOTE | 2017-04-21 14:28 | Patient Discharge Instructions ---
Discharge Instructions General Discharge Information You were seen/treated for: Disseminated Herpes Zoster Watch for these problems: If your eye becomes red, more painful, swollen, or vision becomes more blurry, please see an cnp right away. Special Instructions: Please take the medication for 5 more days at 3 pills per day. Please follow up with Dr. mejias, the cnp, on thursday 04/26. We have changed the dose of your thyroid medication. Please start on the new medication and have repeat thyroid studies in 3 months. Please follow up with her PCP in one week. Diet Continue normal diet: Yes Recommended Diet: Regular Activity Full Activity/No Limits: Yes Acute Coronary Syndrome Inclusion Criteria At DC or during hospital stay patient has or had the following: ACS DIAGNOSIS No Discharge Core Measures Meds if any: Prescribed or Continued at Discharge Meds if any: NOT Prescribed or Continued at Discharge Congestive Heart Failure Inclusion Criteria At DC or during hospital stay patient has or had the following: CHF DIAGNOSIS No Discharge Core Measures Meds if any: Prescribed or Continued at Discharge Meds if any: NOT Prescribed or Continued at Discharge Cerebrovascular accident Inclusion Criteria At DC or during hospital stay patient has or had the following: CVA/TIA Diagnosis No Discharge Core Measures Meds if any: Prescribed or Continued at Discharge Meds if any: NOT Prescribed or Continued at Discharge Venous thromboembolism Inclusion Criteria VTE Diagnosis No VTE Type NONE VTE Confirmed by (Test) NONE Discharge Core Measures - Per Current guidelines, there needs to be overlap - treatment for the first 5 days of Warfarin therapy. - If discharged on Warfarin prior to 5 days of - overlap therapy, the patient will need to be - assessed for post discharge needs including - *Post discharge parental anticoagulation - *Warfarin and/or parental anticoagulation education - *Follow up date to check INR post discharge At least 5 days overlap therapy as Inpatient No Meds if any: Prescribed or Continued at Discharge Note: Overlap Therapy is Warfarin and Anticoagulant Meds if any: NOT Prescribed or Continued at Discharge
[2017-04-21 22:59] VITALS: BP 120/62
[2017-04-22 06:00] VITALS: BP 118/68
--- NOTE | 2017-04-22 08:44 | PN- Housestaff ---
See Addendum Subjective Follow-up For: Herpes zoster dermatitis Subjective: Patient is stable, Vitals WNL. Denies any fever, chills, nausea or overnight events. Review of Systems Constitutional: Reports: no symptoms. EENTM: Reports: see HPI. Cardiovascular: Reports: no symptoms. Respiratory: Reports: no symptoms. Gastrointestinal: Reports: no symptoms. Genitourinary: Reports: no symptoms. Musculoskeletal: Reports: no symptoms. Skin: Reports: see HPI. Neurological/Psychological: Reports: no symptoms. Hematologic/Endocrine: Reports: no symptoms. Immunologic/Allergic: Reports: no symptoms. Objective Last 24 Hrs of Vital Signs/I&O Vital Signs Date Time Temp Pulse Resp B/P B/P Pulse O2 O2 Flow FiO2 Mean Ox Delivery Rate 04/22 0600 98.7 62 18 118/68 96 04/21 2259 98.3 70 18 120/62 97 Room Air 04/21 1422 98.2 74 20 118/55 96 Intake & Output 04/22 1600 04/22 0800 04/22 0000 Intake Total 840 1477 Output Total Balance 840 1477 Intake, IV 600 637 Intake, Oral 240 840 Physical Exam General Appearance: Alert, Oriented X3, Cooperative Other Physical Findings: Skin: Left V1 vesicular rash healing, some crusting and some still weeping. Chicken pox rash on trunk improving. Cardiovascular: Regular Rate, Normal S1, Normal S2 Lungs: Clear to Auscultation Abdomen: Normal Bowel Sounds, Soft, No Tenderness, No Masses Current Medications: Current Medications Sig/Bienvenido Start time Last Medication Dose Route Stop Time Status Admin Acetaminophen 650 MG Q6P PRN 04/19 1830 AC PO Acyclovir 600 MG Q8H 04/19 2145 AC 04/22 Dextrose/Water 100 ML IV 0455 Enoxaparin Sodium 40 MG DAILY 04/19 1821 AC 04/21 SC 0839 Levothyroxine Sodium 0.1 MG DAILY AC 04/20 0700 AC 04/22 PO 0559 Morphine Sulfate 1 MG Q4P PRN 04/19 2030 AC 04/20 IV 0959 Patient Own 1 UNIT SEE ADMIN CRITERIA 04/20 1630 AC 04/20 Medication OPH 2247 Pregabalin 50 MG TID 04/19 2200 AC 04/21 PO 2116 Sodium Chloride 1,000 ML Q13H 04/21 0930 DC 04/21 IV 04/21 2229 1011 Tramadol HCl 50 MG Q6P PRN 04/19 2315 AC 04/22 PO 0500 Assessment/Plan Assessment: Ms. Arizmendi is a 56-year-old female with past medical history of hypothyroidism who presents with history of left facial rash that is painful and has progressed over the course of 9 days. # Dermatomal rash, likely herpes zoster: Her rash is improving however it is disseminated and ID is recommending another day of IV antivirals. She does not have much pain with accommodation and the eye pain with movement and is improving. -PO acyclovir -IV hydration -Zirgan eyedrops - confirm that these are the correct drops as usually valacyclovir or acyclovir as used for herpes zoster. -Outpatient follow-up with ophthalmology -Pregabalin -Acetaminophen -Morphine when necessary pain -Follow up with infectious disease recommendations for home medication #transaminitis: AST 76, ALT 97, increased from prior. Unclear etiology. Differential diagnosis includes side effect of acyclovir, autoimmune hepatitis induced by zoster/chickenpox versus zoster hepatitis. Acyclovir has the lowest hepatotoxicity of her options and we will continue this. -Daily LFTs #Diffuse rash: Though uncommon, there is potential for her to have both herpes zoster and chickenpox. Because some of this rash is not in the dermatomal region as expected this is on the differential. -Continue to monitor #Hypothyroidism: TSH 0.016, T4 13.2, free T4 1.66, total T3 0.72. -Consider consulting endocrinology. May need adjustment of her levothyroxine -Continue levothyroxine DVT prophylaxis with Lovenox Full code Problem List: 1. Herpes zoster dermatitis 2. Hypothyroid 3. Disseminated herpes zoster Pain Ratin Pain Location: Eye Pain Goal: Remain pain free Pain Plan: Pain Pathway Tomorrow's Labs & Rationales: LFT's
--- NOTE | 2017-04-22 10:01 | NUR ---
PT REPORTS SHE HAD VOMITED X1 THIS AM POST TRAMADOL DOSE. PT REPORTS HER PAIN IS "FINE" NOW. PT STATING SHE STILL FEELS NAUSEOUS NOW. NO ANTIEMETICS ON ORDER. [facility] GR[employer]ER [facility] CONTACTED. PENDING POSSIBLE NEW ORDERS. WILL CONT TO MONITOR.
--- NOTE | 2017-04-22 10:40 | NUR ---
EKG ASSESSED BY CHIEF CONSOLE OPERATOR [facility], PER - MAY GIVE ZOFRAN NOW FOR PT'S NAUSEA. WILL CONT TO MONITOR.
--- NOTE | 2017-04-22 12:00 | NUR ---
LATE ENTRY: PHARMACY CONTACTED TO SET UP PT'S EYE GTTS FOR A SCHEDULED TIME IN [place]. PT HAS BEEN PRESCRIBED EYE GTTS AND ORDERED HERE A NON-FORMULARY. TO BETTER ASSIST PT WITH COMPLAINCE OF EYE GTT RX, SCHEDULED TIMES PLACED FOR RN TO EITHER ASSIST PT WITH OR MAKE SURE PT HAS DONE ON OWN. ONCOMING RN TO BE MADE AWARE. WILL CONT TO MONITOR.
--- NOTE | 2017-04-22 14:29 | PN- Infect Dx ---
Subjective Subjective: C/o light bothering her eyes. No fever. No new lesions. Review of Systems Comments: 12 points reviewed as noted, otherwise negative. Objective Last 24 Hrs of Vital Signs/I&O Vital Signs Date Time Temp Pulse Resp B/P B/P Pulse O2 O2 Flow FiO2 Mean Ox Delivery Rate 04/21 2259 98.3 70 18 120/62 97 Room Air Intake & Output Physical Exam Other Physical Findings: Other Physical Findings: General Appearance Alert, No Acute Distress Skin dermatomal vesicular rash on erythematous base involving L ophthalmic branch of trigeminal nerve teritory. New vesicles (filled w/ pus) spreading to the neck, back and lower abdomen. HEENT; AT/NC, no thrush, L eye chemosis, tearing and periorbital edema Cardiovascular Regular Rate, Normal S1, Normal S2, no m/r/g Lungs Clear to Auscultation Abdomen Normal Bowel Sounds, Soft, No Tenderness Extremities No pedal Edema Neuro: A&O x3, CN grossly nl. Results Last 24 Hours of Lab Results: Laboratory Tests; reviewed Last 24 Hours of Jarrett Results: Reviewed Recent Imaging Studies: Reviewed Assessment/Plan Impression: 56-year-old female with past medical history of hypothyroidism diagnosed as outpatient with herpes zoster opthtalmicus, complicated by disseminated zoster. Of note 2/3 patients can develop keratitis; if persistent eye discomfort f/u ophthalmology recommended. Suggestion: 1. Acyclovir 10 mg/kg q 8 h D #3/. 2. Oral gabapentin for neuropathic pain. 3. Keep well hydrated. Monitor BMP. 4. Contact and airborne precautions.
[2017-04-22 14:54] VITALS: BP 122/70
[2017-04-22 23:02] VITALS: BP 116/70
[2017-04-23 06:00] VITALS: BP 130/78
--- NOTE | 2017-04-23 07:55 | PN- Student ---
Subjective Subjective: No overnight events. Electric pain on forehead has improved and the patient feels that she does not need pregabalin anymore. Diffuse papules on the back are not pruritic and are healing. Achy pain behind eyes has decreased. EOM do not elicit pain. She has not spiked any fevers since 04/20 and is feeling better. She denies any abdominal pain, nausea, vomitting, or diarrhea despite mild transaminitis. Objective Objective: PE: VITALS: 6AM: T: 98.2, P: 64, RR:18, BP: 130/78, O2 STAT: 97 RA EYES: EOM INTACT AND DO NOT ELICIT PAIN. LUNGS: CTA BL CV:NORMAL S1, S2, NO R/M/G ABD:NON-TENDER TO PALPATION SKIN: RASH ON FOREHEAD IS CRUSTING AND APPEARS TO BE IMPROVING. PUSTULES HAVE HEALED AND FORMED SCABS. Results Results: Laboratory Tests 04/23/17 0654: Sodium Pending, Potassium Pending, Chloride Pending, Carbon Dioxide Pending, Anion Gap Pending, BUN Pending, Creatinine Pending, BUN/Creatinine Ratio Pending , Total Bilirubin Pending, Direct Bilirubin Pending, AST Pending, ALT Pending, Alkaline Phosphatase Pending, Total Protein Pending, Albumin Pending 04/22/17 1026: Anion Gap 10, Estimated GFR > 60, BUN/Creatinine Ratio 15.0, Total Bilirubin 0.5 , Direct Bilirubin 0.3, AST 45 H, ALT 83 H, Alkaline Phosphatase 89, Total Protein 6.8, Albumin 3.9 04/21/17 0630: Anion Gap 11, Estimated GFR > 60, BUN/Creatinine Ratio 16.7, Total Bilirubin 0.6 , Direct Bilirubin 0.2, AST 76 H, ALT 97 H, Alkaline Phosphatase 89, Total Protein 6.4, Albumin 3.7, CBC w Diff NO MAN DIFF REQ, RBC 4.37, MCV 87.9, MCH 29.6, RDW 13.1, MPV 8.3, Gran % 30.1 L, Lymphocytes % 52.4 H, Monocytes % 16.0 H, Eosinophils % 0.8, Basophils % 0.7, Absolute Granulocytes 1.9, Absolute Lymphocytes 3.3, Absolute Monocytes 1.0 H, Absolute Eosinophils 0, Absolute Basophils 0, PUBS MCHC 33.7 Assessment/Plan Assessment: Ms. Arizmendi is a immunocompentent 56-year-old female with PMH of hypothyroidism who presented with 9 days of progressively worsening left forehead rash with electrical pain, achy pain behind the eyes and diffuse, pruritic pustules on the back and abdomen. Prior to admission she had an outpatient diagnosis of herpes zoster opthtalmicus. Dermatomal vesicular rash on forehead with pustules on the back supports diagnosis of disseminated herpes zoster. Rash is improving and the patient may be discharged tomorrow. Plan: 1) Disseminated herpes zoster: -Acyclovir 600mg/100mL q8H IV -DC Pregabalin 50mg TID PO -Zirgan eyedrops -Acetaminophen 650mg q6h PRN -Morphine when necessary pain 1mg q4h PRN -follow up outpatient with an labor arbitrator. -possible discharge tomorrow 3) Transaminitis: AST: 45, ALT:83 -May be due to acyclovir or due to herpes zoster related hepititis. -Improving- continue to monitor 4) Hypothyroidism: -Continue levothyroxine 0.1mg PO daily 5) DVT prophylaxis with Lovenox 6) Full code
--- NOTE | 2017-04-23 08:54 | PN- Housestaff ---
See Addendum Subjective Follow-up For: herpes zoster Subjective: No overnight events. She feels better this morning, pain is improving. She would like to stay one more night. No other complaints. Review of Systems Constitutional: Reports: no symptoms. EENTM: Reports: see HPI. Cardiovascular: Reports: no symptoms. Respiratory: Reports: no symptoms. Gastrointestinal: Reports: no symptoms. Genitourinary: Reports: no symptoms. Musculoskeletal: Reports: no symptoms. Skin: Reports: see HPI. Neurological/Psychological: Reports: no symptoms. Hematologic/Endocrine: Reports: no symptoms. Immunologic/Allergic: Reports: no symptoms. Objective Last 24 Hrs of Vital Signs/I&O Vital Signs Date Time Temp Pulse Resp B/P B/P Pulse O2 O2 Flow FiO2 Mean Ox Delivery Rate 04/23 0600 98.2 64 18 130/78 97 Room Air 04/22 2302 98.8 64 16 116/70 97 Room Air 04/22 1454 98.5 64 20 122/70 97 Room Air Intake & Output 04/23 1600 04/23 0800 04/23 0000 Intake Total 500 1290 Output Total Balance 500 1290 Intake, IV 150 450 Intake, Oral 350 840 Physical Exam General Appearance: Alert, Oriented X3, Cooperative, No Acute Distress Skin: Vesicular rash on head in various stages of healing, some crusting., Trunkal rash improving HEENT: R eye is actually somewhat more blurry than left. No pain with accomodatin, no redness in eye. Cardiovascular: Regular Rate, Normal S1, Normal S2 Lungs: Clear to Auscultation Abdomen: Normal Bowel Sounds, Soft, No Tenderness Extremities: No Edema Current Medications: Current Medications Sig/Bienvenido Start time Last Medication Dose Route Stop Time Status Admin Acetaminophen 650 MG Q6P PRN 04/19 1830 AC PO Acyclovir 600 MG Q8H 04/19 2145 AC 04/23 Dextrose/Water 100 ML IV 06 Enoxaparin Sodium 40 MG DAILY 04/19 1821 AC 04/21 SC 0839 Levothyroxine Sodium 0.1 MG DAILY AC 04/20 0700 AC 04/23 PO 0612 Morphine Sulfate 1 MG Q4P PRN 04/19 2030 AC 04/20 IV 0959 Ondansetron HCl 4 MG ONCE ONE 04/22 1245 DC 04/22 IV 04/22 1246 1358 Ondansetron HCl 4 MG ONCE ONE 04/22 1100 DC 04/22 PO 04/22 1101 1052 Ondansetron HCl 4 MG ONCE ONE 04/22 1030 CAN IV 04/22 1031 Patient Own 1 UNIT Q5 04/22 1200 AC 04/23 Medication OPH 0826 Patient Own 1 UNIT SEE ADMIN CRITERIA 04/20 1630 DC 04/20 Medication OPH 2247 Pregabalin 50 MG TID 04/19 2200 AC 04/21 PO 2116 Sodium Chloride 1,000 ML Q13H 04/22 1745 DC 04/22 IV 04/23 0644 1834 Tramadol HCl 50 MG Q6P PRN 04/19 2315 DC 04/22 PO 0500 Last 24 Hrs of Lab/Jarrett Results Last 24 Hrs of Labs/Mics: Laboratory Tests 04/23/17 0654: Sodium Pending, Potassium Pending, Chloride Pending, Carbon Dioxide Pending, Anion Gap Pending, BUN Pending, Creatinine Pending, BUN/Creatinine Ratio Pending , Total Bilirubin Pending, Direct Bilirubin Pending, AST Pending, ALT Pending, Alkaline Phosphatase Pending, Total Protein Pending, Albumin Pending 04/22/17 1026: Anion Gap 10, Estimated GFR > 60, BUN/Creatinine Ratio 15.0, Total Bilirubin 0.5 , Direct Bilirubin 0.3, AST 45 H, ALT 83 H, Alkaline Phosphatase 89, Total Protein 6.8, Albumin 3.9 Assessment/Plan Assessment: Ms. Arizmendi is a 56-year-old female with past medical history of hypothyroidism who presents with history of left facial rash that is painful and has progressed over the course of 9 days. # Dermatomal rash, likely herpes zoster: Her rash is improving however it is disseminated and ID is recommending another day of IV antivirals. She does not have much pain with accommodation and the eye pain with movement and is improving. She also does not have blurry vision. -PO acyclovir -IV hydration -Zirgan eyedrops -Outpatient follow-up with ophthalmology on Monday with Dr. Rausch -Pregabalin -Acetaminophen -Morphine when necessary pain -Follow up with infectious disease recommendations for home medication #transaminitis: Improving, AST 26, ALT 68 today. Differential diagnosis includes side effect of acyclovir, autoimmune hepatitis induced by zoster/ chickenpox versus zoster hepatitis. Acyclovir has the lowest hepatotoxicity of her options and we will continue this. -Daily LFTs #Chickenpox rash: Improving. -Continue to monitor #Hypothyroidism: TSH 0.016, T4 13.2, free T4 1.66, total T3 0.72. -Consider consulting endocrinology. May need adjustment of her levothyroxine -Continue levothyroxine DVT prophylaxis with Lovenox Full code Problem List: 1. Disseminated herpes zoster 2. Hypothyroid Pain Ratin Pain Location: eye Pain Goal: Remain pain free Pain Plan: see a/p Tomorrow's Labs & Rationales: LFTs, BEP
--- NOTE | 2017-04-23 13:08 | PN- Infect Dx ---
Subjective Subjective: No fever. Less photophobia. No n/v. Skin lesions not itching. Scalp discomfort. Review of Systems Comments: 12 points reviewed as noted, otherwise negative. Objective Last 24 Hrs of Vital Signs/I&O Vital Signs Date Time Temp Pulse Resp B/P B/P Pulse O2 O2 Flow FiO2 Mean Ox Delivery Rate 04/23 0600 98.2 64 18 130/78 97 Room Air 04/22 2302 98.8 64 16 116/70 97 Room Air 04/22 1454 98.5 64 20 122/70 97 Room Air Intake & Output 04/23 1600 04/23 0800 04/23 0000 Intake Total 850 1290 Output Total Balance 850 1290 Intake, IV 300 450 Intake, Oral 550 840 Physical Exam Other Physical Findings: General Appearance Alert, No Acute Distress Skin large vesicular lesions on erythematous base involving L ophthalmic branch of trigeminal nerve teritory. Vesicular rash involving the scalp, neck, back and lower abdomen. MP rash lower extr, no new vesicles formation. HEENT; AT/NC, no thrush, L eye tearing and mild periorbital edema w/ mild chemosis Cardiovascular Regular Rate, Normal S1, Normal S2, no m/r/g Lungs Clear to Auscultation Abdomen Normal Bowel Sounds, Soft, No Tenderness Extremities No pedal Edema Neuro: A&O x3, CN grossly nl Results Last 24 Hours of Lab Results: Laboratory Tests 04/23 0654 Chemistry Sodium (137 - 145 mmol/L) 139 Potassium (3.5 - 5.1 mmol/L) 4.1 Chloride (98 - 107 mmol/L) 100 Carbon Dioxide (22 - 30 mmol/L) 29 Anion Gap (5 - 16) 10 BUN (7 - 17 mg/dL) 10 Creatinine (0.5 - 1.0 mg/dL) 0.8 Estimated GFR (>60 ml/min) > 60 BUN/Creatinine Ratio (7 - 25 %) 12.5 Total Bilirubin (0.2 - 1.3 mg/dL) 0.6 Direct Bilirubin (< 0.4 mg/dL) 0.1 AST (14 - 36 U/L) 26 ALT (9 - 52 U/L) 68 H Alkaline Phosphatase (<127 U/L) 80 Total Protein (6.3 - 8.2 g/dL) 6.3 Albumin (3.5 - 5.0 g/dL) 3.9 Last 24 Hours of Jarrett Results: Reviewed Recent Imaging Studies: Reviewed Assessment/Plan Impression: 56-year-old female with past medical history of hypothyroidism diagnosed as outpatient with herpes zoster opthtalmicus, complicated by disseminated zoster. As 2/3 patients can develop keratitis; if persistent eye discomfort f/u ophthalmology recommended as outpatient. Suggestion: 1. Acyclovir 10 mg/kg q 8 h D #01/13; plan to start valtrex 1000 mg po q 8 h on ; close f/u with PCP. 2. Oral gabapentin for neuropathic pain. 3. Keep well hydrated. Monitor BMP. 4. Mantain contact and airborne precautions.
[2017-04-23 15:15] VITALS: BP 120/78
[2017-04-23 22:00] VITALS: BP 92/60
[2017-04-24 05:45] VITALS: BP 106/70
--- NOTE | 2017-04-24 08:06 | PN- Housestaff ---
See Addendum Subjective Follow-up For: herpes zoster Subjective: No overnight events. She slept well. She was wondering about when she can shower. Otherwise, she was complaining of some mild difficulty focusing yesterday, but no pain. This has improved since. She has an ophthalmology appt for Monday. No other issues. Review of Systems Constitutional: Reports: no symptoms. EENTM: Reports: see HPI. Cardiovascular: Reports: no symptoms. Respiratory: Reports: no symptoms. Gastrointestinal: Reports: no symptoms. Genitourinary: Reports: no symptoms. Musculoskeletal: Reports: no symptoms. Skin: Reports: no symptoms. Neurological/Psychological: Reports: no symptoms. Hematologic/Endocrine: Reports: no symptoms. Immunologic/Allergic: Reports: no symptoms. Objective Last 24 Hrs of Vital Signs/I&O Vital Signs Date Time Temp Pulse Resp B/P B/P Pulse O2 O2 Flow FiO2 Mean Ox Delivery Rate 04/24 0545 98.6 69 17 106/70 96 04/23 2200 98.8 74 18 92/60 95 04/23 1515 98.6 66 20 120/78 97 Room Air Intake & Output 04/24 1600 04/24 0800 04/24 0000 Intake Total 100 100 Output Total Balance 100 100 Intake, IV 100 100 Physical Exam General Appearance: Alert, Oriented X3, Cooperative, No Acute Distress Skin: Vesciluar rash is crusting. HEENT: PERRLA, EOMI, No redness in eyes. Some mild crusting on eyelash. Cardiovascular: Regular Rate, Normal S1, Normal S2 Lungs: Clear to Auscultation Abdomen: Normal Bowel Sounds, Soft, No Tenderness Extremities: No Edema Current Medications: Current Medications Sig/Bienvenido Start time Last Medication Dose Route Stop Time Status Admin Acetaminophen 650 MG Q6P PRN 04/19 1830 AC PO Acyclovir 600 MG Q8H 04/19 2145 AC 04/24 Dextrose/Water 100 ML IV 0538 Enoxaparin Sodium 40 MG DAILY 04/19 1821 AC 04/21 SC 0839 Levothyroxine Sodium 0.1 MG DAILY AC 04/20 0700 AC 04/24 PO 0538 Morphine Sulfate 1 MG Q4P PRN 04/19 2030 AC 04/20 IV 0959 Patient Own 1 UNIT Q5 04/22 1200 AC 04/23 Medication OPH 2350 Pregabalin 50 MG TID 04/19 2200 AC 04/21 PO 2115 Last 24 Hrs of Lab/Jarrett Results Last 24 Hrs of Labs/Mics: Laboratory Tests 04/24/17 0650: Sodium Pending, Potassium Pending, Chloride Pending, Carbon Dioxide Pending, Anion Gap Pending, BUN Pending, Creatinine Pending, BUN/Creatinine Ratio Pending , Total Bilirubin Pending, Direct Bilirubin Pending, AST Pending, ALT Pending, Alkaline Phosphatase Pending, Total Protein Pending, Albumin Pending Assessment/Plan Assessment: Ms. Arizmendi is a 56-year-old female with past medical history of hypothyroidism who presents with history of left facial rash that is painful and has progressed over the course of 9 days. #Disseminated herpes zoster: Her rash is improving. She does not have much pain with accommodation and the eye pain with movement and is improving. She did have some mild issues focusing yesterday but these seem to have improved. She also does not have blurry vision. She has an appointment with Dr. rausch on Monday. -PO acyclovir -IV hydration -Zirgan eyedrops -Outpatient follow-up with ophthalmology on Monday with Dr. Rausch. Consider earlier appointment if concern for ophthalmic involvement -Pregabalin -Acetaminophen -Morphine when necessary pain -Follow up with infectious disease recommendations for home medication. Seems like they wanted to have 14 day total direction. Today is day 5. She has 19 pills from previously. #transaminitis: Improving. Differential diagnosis includes side effect of acyclovir, autoimmune hepatitis induced by zoster/chickenpox versus zoster hepatitis. Acyclovir has the lowest hepatotoxicity of her options and we will continue this. -Daily LFTs #Chickenpox rash: Improving. -Continue to monitor #Hypothyroidism: TSH 0.016, T4 13.2, free T4 1.66, total T3 0.72. -Consider consulting endocrinology. May need adjustment of her levothyroxine -Continue levothyroxine DVT prophylaxis with Lovenox Full code Problem List: 1. Disseminated herpes zoster Pain Ratin Pain Location: no pain Pain Goal: Remain pain free Pain Plan: see a/p Tomorrow's Labs & Rationales: none Discharge Plan Anticipated Discharge (Day): today
[2017-04-24] MEDS ORDERED: VALACYCLOVIR1000 MG PO ×2 (12:21→12:31)
[2017-04-24] MEDS ORDERED: SYNTHROID100 MCG PO (12:24)
== END 2017-04-24 15:30 | DRG 866 ==
LOC: ERH 14:20 → ERHI 17:50 → EDBEDREQ 22:08 → ENRESERV 04-20 17:45 → ENTRNSPT 04-20 18:45 → EDTRNSPTSTS 04-20 19:11 → 2NB 04-20 19:29 → CMPTRNSPT 04-20 19:41 → 2NB 04-21 08:42 → ENPENDDIS 04-24 14:04 → 2NB 04-24 15:30
PROVIDERS: Internal Medicine; Physician Assistant; ADMIT Student in an Organized Health Care Education/Training Program
DX: B02.7 Disseminated zoster (principal); B02.30 Zoster ocular disease, unspecified; E03.9 Hypothyroidism, unspecified
CPT/HCPCS: ERO; 36415; 82436; 93005; 93010; 96374; J1650; J1885; J2405; J7040